=== PATIENT | male | born 1970 | race Caucasian/White ===

== ENCOUNTER 2020-10-23 07:52 | Outpatient (REF) | payer OTHER, SELFPAY | END 2020-10-23 07:53 | disposition home or self-care (01) | LOC: HO.BBR 07:52 | PROVIDERS: Visit Provider Internal Medicine | DX: Z13.89 Encounter for screening for other disorder (principal) ==

== ENCOUNTER 2020-11-22 07:59 | Outpatient (REF) | payer OTHER, SELFPAY | END 2020-11-22 08:00 | disposition home or self-care (01) | LOC: HO.BBR 07:59 | PROVIDERS: Visit Provider Internal Medicine | DX: Z13.89 Encounter for screening for other disorder (principal) ==

== ENCOUNTER 2020-12-25 08:00 | Outpatient (REF) | payer OTHER, SELFPAY | END 2020-12-25 08:01 | disposition home or self-care (01) | LOC: HO.BBR 08:00 | PROVIDERS: Visit Provider Internal Medicine | DX: Z13.89 Encounter for screening for other disorder (principal) ==

== ENCOUNTER 2021-02-25 08:09 | Outpatient (REF) | payer OTHER, SELFPAY | END 2021-02-25 08:10 | disposition home or self-care (01) | LOC: HO.BBR 08:09 | PROVIDERS: Visit Provider Internal Medicine | DX: Z13.89 Encounter for screening for other disorder (principal) ==

== ENCOUNTER 2021-03-20 08:02 | Outpatient (REF) | payer OTHER, SELFPAY | END 2021-03-20 08:03 | disposition home or self-care (01) | LOC: HO.BBR 08:02 | PROVIDERS: Visit Provider Internal Medicine | DX: Z13.89 Encounter for screening for other disorder (principal) ==

== ENCOUNTER 2021-12-23 07:56 | Outpatient (REF) | payer OTHER, SELFPAY | END 2021-12-23 07:57 | disposition home or self-care (01) | LOC: HO.BBR 07:56 | PROVIDERS: Visit Provider Internal Medicine | DX: Z13.89 Encounter for screening for other disorder (principal) ==

== ENCOUNTER 2022-02-23 08:09 | Outpatient (REF) | payer OTHER, SELFPAY | END 2022-02-23 08:10 | disposition home or self-care (01) | LOC: HO.BBR 08:09 | PROVIDERS: Visit Provider Internal Medicine | DX: Z13.89 Encounter for screening for other disorder (principal) ==

== ENCOUNTER 2022-07-15 08:00 | Outpatient (REF) | payer OTHER, SELFPAY | END 2022-07-15 08:01 | disposition home or self-care (01) | LOC: HO.BBR 08:00 | PROVIDERS: Visit Provider Internal Medicine | DX: Z13.89 Encounter for screening for other disorder (principal) ==

== ENCOUNTER 2022-09-16 08:01 | Outpatient (REF) | payer OTHER, SELFPAY | END 2022-09-16 08:02 | disposition home or self-care (01) | LOC: HO.BBR 08:01 | PROVIDERS: Visit Provider Internal Medicine | DX: Z13.89 Encounter for screening for other disorder (principal) ==

== ENCOUNTER 2022-11-17 08:05 | Outpatient (REF) | payer OTHER, SELFPAY | END 2022-11-17 08:06 | disposition home or self-care (01) | LOC: HO.BBR 08:05 | PROVIDERS: Visit Provider Internal Medicine | DX: Z13.89 Encounter for screening for other disorder (principal) ==